=== PATIENT | female | born 1930 | race Caucasian/White ===

== ENCOUNTER 2016-10-28 07:14 | Inpatient (IN) | payer OTHER ==
[~2016-10-28] VITALS: Ht 167.6 cm; Wt 82.0 kg
[~2016-10-28 07:14] MED LIST: ADVIL PM1 TABLET PO; ASPIRIN325 MG PO; ATORVASTATIN CA40 MG PO; CLEOCIN PE75 MG/5 ML PO; COUMADIN1 MG PO; DULCOLAX5 MG PO; ENDOCET 5-3251 EACH PO; GLIPIZIDE ER2.5 MG PO; HYDROCHLOROTHIA25 MG PO; IBUPROFEN800 MG PO; IRON325 M1 PO; LEXAPRO10 MG PO; LISINOPRIL10 MG PO; LO-DOSE ASPIRIN81 M2 PO; LYRICA100 MG PO; LYRICA75 MG PO; MEDROL DOSEPAK4 MG PO; METHYLPREDNISOLO4 MG PO; OXYCODONE H5 MG/5 ML PO; OXYCONTIN10 MG PO; PREDNISONE5 MG PO; TOPRO; TRANXENE T-TAB7.5 MG PO; ULTRAM50 MG PO; VITAMIN D31000 UNI2 PO; ZESTRIL,PRINIVI10 MG PO; [UNRECOGNIZED DRUG - CODE] PO; [UNRECOGNIZED DRUG - OTHER]
[2016-10-28 08:45] LABS: HEMATOCRIT 37.1 % (36.0-46.0); MCH 30.1 PG (29.0-34.0); MCHC 32.9 G/DL (30.0-36.0); MCV 91.6 FL (83-99); MEAN PLAT.VOLUME 10.3 uM^3 (9.5-12.4); PLATELET COUNT 231 K/uL (156-360); RBC DIS.WIDTH-CV 13.4 % (11.8-14.6); RBC DIS.WIDTH-SD 45.6 % (39-53); RED BLOOD COUNT 4.05 M/uL (3.80-5.20); WHITE BLOOD COUNT 10.2 K/uL (4.1-10.2)
[2016-10-28 08:58] LABS: CHLORIDE 101 mEq/L (99-109); POTASSIUM 3.6 mEq/L (3.7-5.4); SODIUM 139 mEq/L (136-147)
[2016-10-28 09:00] LABS: GLUCOSE 97 mg/dL (70-99)
[2016-10-28 09:01] LABS: ANION GAP 9 MEQ/L (2-14)
[2016-10-28 09:02] LABS: TOTAL BILIRUBIN 0.4 mg/dL (0.0-1.0)
[2016-10-28 09:04] LABS: ALKALINE PHOSPHATASE 42 IU/L (3-129); GFR ESTIMATE (CALCULATED) > 59 mL/min/
[2016-10-28 09:05] LABS: UREA NITROGEN (BUN) 26 mg/dL (9-23)
[2016-10-28 09:07] LABS: LIPASE 35 U/L (1.0-51.0)
[2016-10-28 09:08] LABS: TROP-I INTERPRETATION NEGATIVE; TROPONIN-I < 0.01 ng/mL (0.0-0.30)
[2016-10-28 10:22] LABS: INTER. NORMALIZED RATIO 1.1; PROTHROMBIN TIME 11.8 SEC (10.2-12.9)
[2016-10-28 10:25] LABS: PTT 25.2 SEC (25-37)
[2016-10-28] MEDS ORDERED: GLYBURIDE MICR1.5 M1 PO (11:39)
[2016-10-28] MEDS ORDERED: ULTRAM50 MG PO (11:40)
[2016-10-28] MEDS ORDERED: LITE COAT ASPI325 M1 PO (11:41)
[2016-10-28] MEDS ORDERED: BENTYL10 MG PO (11:42)
[2016-10-28] MEDS ORDERED: ONCE DAILY1 EACH PO (11:42)
[2016-10-28] MEDS ORDERED: BIOTIN1000 MICRO PO (11:43)
[2016-10-28 12:15] VITALS: BP 123/67
[2016-10-28 16:37] LABS: POINT-OF-CARE METER ID UU14162508
[2016-10-28 16:52] VITALS: BP 126/60
[2016-10-28 20:11] VITALS: BP 128/58
[2016-10-28 21:25] LABS: POINT-OF-CARE METER ID UU14208750
[2016-10-28 23:55] VITALS: BP 118/59
[2016-10-29 04:04] VITALS: BP 144/65
[2016-10-29 04:48] LABS: HEMATOCRIT 38.7 % (36.0-46.0); MCH 30.2 PG (29.0-34.0); MCHC 32.8 G/DL (30.0-36.0); MCV 92.1 FL (83-99); MEAN PLAT.VOLUME 10.4 uM^3 (9.5-12.4); PLATELET COUNT 215 K/uL (156-360); RBC DIS.WIDTH-CV 13.7 % (11.8-14.6); RBC DIS.WIDTH-SD 46.5 % (39-53); WHITE BLOOD COUNT 10.4 K/uL (4.1-10.2)
[2016-10-29 06:47] LABS: POINT-OF-CARE METER ID UU14162508
[2016-10-29 07:39] VITALS: BP 158/70
[2016-10-29 11:53] VITALS: BP 118/56
[2016-10-29 11:58] LABS: POINT-OF-CARE METER ID UU14162508
[2016-10-29 16:31] VITALS: BP 114/55
[2016-10-29 16:31] LABS: POINT-OF-CARE METER ID UU14162508
[2016-10-29 19:20] VITALS: BP 115/56
[2016-10-29 19:53] VITALS: BP 115/56
[2016-10-29 21:50] LABS: POINT-OF-CARE METER ID UU14162508
[2016-10-30 00:02] VITALS: BP 126/55
[2016-10-30 04:03] VITALS: BP 135/62
[2016-10-30 06:24] LABS: POINT-OF-CARE METER ID UU14162508
[2016-10-30 07:30] VITALS: BP 110/61
[2016-10-30] MEDS ORDERED: ELIQUIS5 MG PO ×2 (10:04→12:22)
[2016-10-30 11:30] LABS: POINT-OF-CARE METER ID UU14162508
[2016-10-30 11:45] VITALS: BP 120/60
[2016-10-30] MEDS ORDERED: ASPIR-LOW81 MG PO (12:22)
[2016-11-02 13:04] LABS: ANTITHROMBIN III ACTIVITY+ 80 (80-120); DRVVT Mixing Study Interp Not Indicated (()); PROTEIN C FUNCTIONAL ACTIVITY+ 155 % (70-180); PTT-LA 41 sec (<=40); Protein S, Free 128 % normal (50-147); Thrombosis Consult Level Limited (()); dRVVT Screen 30 sec (<=45)
== END 2016-10-30 13:32 | disposition home or self-care (01) | DRG 175 ==
LOC: EME 07:14 → EDOF 10:30 → 2EAST 10:30 → ENRESERV 10:35 → EDOF 10:49 → ENRESERV 11:05 → 2EAST 11:51
PROVIDERS: Anesthesiology; Internal Medicine; Nurse Practitioner Family
DX: I26.99 Other pulmonary embolism without acute cor pulmonale (principal); J96.01 Acute respiratory failure with hypoxia; I10 Essential (primary) hypertension; E78.5 Hyperlipidemia, unspecified; J98.11 Atelectasis; M79.7 Fibromyalgia; E11.9 Type 2 diabetes mellitus without complications; Z96.643 Presence of artificial hip joint, bilateral; E66.9 Obesity, unspecified; Z68.29 Body mass index [BMI] 29.0-29.9, adult; K59.00 Constipation, unspecified; M19.90 Unspecified osteoarthritis, unspecified site; I70.0 Atherosclerosis of aorta; E87.6 Hypokalemia; G25.0 Essential tremor; Z79.84 Long term (current) use of oral hypoglycemic drugs
CPT/HCPCS: 71275; 73030; 80053; 81003; 81240 90; 82948; 83090 90; 83690; 84484; 85027; 85240 90; 85300 90; 85303 90; 85305 90; 85306 90; 85610; 85613 90; 85730; 85730 90; 86146 90; 86147 90; 93005; 93970; 94799; 99281; 99285; J1815; J2270; J2405; J3010; J7030

== ENCOUNTER 2016-11-17 01:21 | Inpatient (IN) | payer OTHER ==
[~2016-11-17] VITALS: Ht 167.6 cm; Wt 79.5 kg
[~2016-11-17 01:21] MED LIST changes: +ASPIR-LOW81 MG PO; +BENTYL10 MG PO; +BIOTIN1000 MICRO PO; +ELIQUIS5 MG PO; +GLYBURIDE MICR1.5 M1 PO; +LITE COAT ASPI325 M1 PO; +ONCE DAILY1 EACH PO
[2016-11-17 02:23] LABS: HEMATOCRIT 39.2 % (36.0-46.0); MCH 30.7 PG (29.0-34.0); MCHC 33.9 G/DL (30.0-36.0); MCV 90.5 FL (83-99); RBC DIS.WIDTH-CV 13.8 % (11.8-14.6); RBC DIS.WIDTH-SD 46.3 % (39-53); RED BLOOD COUNT 4.33 M/uL (3.80-5.20); WHITE BLOOD COUNT 27.9 K/uL (4.1-10.2)
[2016-11-17 02:32] LABS: CHLORIDE 106 mEq/L (99-109); SODIUM 140 mEq/L (136-147)
[2016-11-17 02:34] LABS: GLUCOSE 120 mg/dL (70-99)
[2016-11-17 02:35] LABS: ANION GAP 10 MEQ/L (2-14)
[2016-11-17 02:36] LABS: TOTAL BILIRUBIN 0.3 mg/dL (0.0-1.0)
[2016-11-17 02:37] LABS: ALKALINE PHOSPHATASE 44 IU/L (3-129)
[2016-11-17 02:38] LABS: GFR ESTIMATE (CALCULATED) > 59 mL/min/
[2016-11-17 02:39] LABS: UREA NITROGEN (BUN) 27 mg/dL (9-23)
[2016-11-17 02:57] LABS: MEAN PLAT.VOLUME 11.3 uM^3 (9.5-12.4); PLAT.SUFFICIENCY ADEQUATE; PLATELET COUNT 253 K/uL (156-360)
[2016-11-17 03:41] LABS: LIPASE 43 U/L (1.0-51.0)
[2016-11-17 03:48] LABS: TROP-I INTERPRETATION NEGATIVE; TROPONIN-I < 0.01 ng/mL (0.0-0.30)
[2016-11-17 05:22] LABS: ADD MIUA? YES; BILIRUBIN NEGATIVE; BLOOD NEGATIVE; COLOR STRAW ((YELLOW)); GLUCOSE (STRIP) NEGATIVE; KETONES NEGATIVE; LEUKOCYTES TRACE; NITRITE NEGATIVE; PROTEIN (STRIP) NEGATIVE; UROBILINOGEN 0.2 MG/DL (0.2-1.0)
[2016-11-17 05:29] LABS: BACTERIA NONE SEEN /HPF; EPITHELIAL CELLS 1+ /HPF; MUCUS TRACE /LPF; RED BLOOD CELLS 0-5 /HPF (0-5); UCUL ADDED? NO; WHITE BLOOD CELLS 0-5 /HPF (0-5)
[2016-11-17 06:27] LABS: SPECIFIC GRAVITY 1.071 (1.000-1.030)
[2016-11-17 07:11] VITALS: BP 125/58
[2016-11-17 08:34] LABS: POINT-OF-CARE METER ID UU14117124
[2016-11-17 11:53] LABS: POINT-OF-CARE METER ID UU14117124
[2016-11-17 16:07] LABS: POINT-OF-CARE METER ID UU14117124
[2016-11-17 16:08] VITALS: BP 14/65; BP 145/65
[2016-11-17 19:33] VITALS: BP 142/65
[2016-11-17 21:46] LABS: POINT-OF-CARE METER ID UU14117124
[2016-11-17 21:54] LABS: HEMATOCRIT 38.6 % (36.0-46.0); MCH 31.2 PG (29.0-34.0); MCHC 33.7 G/DL (30.0-36.0); MCV 92.6 FL (83-99); RBC DIS.WIDTH-CV 14.2 % (11.8-14.6); RBC DIS.WIDTH-SD 48.1 % (39-53); RED BLOOD COUNT 4.17 M/uL (3.80-5.20); WHITE BLOOD COUNT 17.6 K/uL (4.1-10.2)
[2016-11-17 22:07] LABS: INTER. NORMALIZED RATIO 1.4; PROTHROMBIN TIME 15.5 SEC (10.2-12.9)
[2016-11-17 22:09] LABS: PTT 29.3 SEC (25-37)
[2016-11-17 22:22] LABS: PLATELET COUNT UNABLE TO REPORT K/uL (156-360)
[2016-11-17 23:45] VITALS: BP 148/65
[2016-11-18] LABS: POINT-OF-CARE METER ID UU14117124
[2016-11-18 05:13] VITALS: BP 131/60
[2016-11-18 05:33] LABS: BASOPHIL COUNT 0.1 K/uL (0-0.1); EOSINOPHIL COUNT 0.2 K/uL (0-0.3); HEMATOCRIT 40.7 % (36.0-46.0); IMMATURE GRANULOCYTE (%) 1.3 % (0.0-0.7); IMMATURE GRANULOCYTE COUNT 0.3 K/uL; INSTRUMENT ABS NEUTROPHIL CT 16.6 K/uL; LYMPHOCYTE COUNT 1.7 K/uL (1.0-2.8); MCH 29.9 PG (29.0-34.0); MCHC 32.4 G/DL (30.0-36.0); MCV 92.1 FL (83-99); MONOCYTE (%) 5.2 % (3-12); NEUTROPHIL (%) 83.7 % (45-76); NEUTROPHIL COUNT 16.6 K/uL (1.8-6.4); PLATELET COUNT 254 K/uL (156-360); RBC DIS.WIDTH-SD 47.8 % (39-53); RED BLOOD COUNT 4.42 M/uL (3.80-5.20); WHITE BLOOD COUNT 19.8 K/uL (4.1-10.2)
[2016-11-18 06:00] LABS: ANION GAP 7 MEQ/L (2-14); CHLORIDE 99 MEQ/L (99-109); GFR ESTIMATE (CALCULATED) > 59 mL/min/; GLUCOSE 133 mg/dL (70-99); POTASSIUM 4.4 MEQ/L (3.7-5.4); SAMPLE HEMOLYSIS CHECK 0; SAMPLE ICTERIC CHECK 0; SAMPLE LIPEMIA CHECK 0; SODIUM 137 MEQ/L (136-147); UREA NITROGEN (BUN) 18 mg/dL (9-23)
[2016-11-18 06:38] LABS: POINT-OF-CARE METER ID UU14117124
[2016-11-18 07:49] VITALS: BP 121/58
[2016-11-18 11:07] LABS: POINT-OF-CARE METER ID UU14117124
[2016-11-18 11:31] VITALS: BP 117/58
[2016-11-18 16:38] VITALS: BP 138/63
[2016-11-18 16:40] LABS: POINT-OF-CARE METER ID UU14117124
[2016-11-18 19:47] LABS: INTER. NORMALIZED RATIO 1.4
[2016-11-18 19:50] LABS: PTT 53.7 SEC (25-37)
[2016-11-18 22:02] LABS: POINT-OF-CARE METER ID UU14117124
[2016-11-19] VITALS (9 sets, daily range): BP systolic 125–157; BP diastolic 58–80
[2016-11-19 01:57] LABS: BASOPHIL COUNT 0.1 K/uL (0-0.1); EOSINOPHIL (%) 1.5 % (0-5); EOSINOPHIL COUNT 0.2 K/uL (0-0.3); HEMATOCRIT 36.2 % (36.0-46.0); IMMATURE GRANULOCYTE (%) 1.7 % (0.0-0.7); IMMATURE GRANULOCYTE COUNT 0.3 K/uL; INSTRUMENT ABS NEUTROPHIL CT 12.3 K/uL; LYMPHOCYTE COUNT 1.6 K/uL (1.0-2.8); MCH 30.4 PG (29.0-34.0); MCHC 33.7 G/DL (30.0-36.0); MCV 90.3 FL (83-99); MEAN PLAT.VOLUME 10.7 uM^3 (9.5-12.4); MONOCYTE (%) 6.6 % (3-12); NEUTROPHIL (%) 79.1 % (45-76); NEUTROPHIL COUNT 12.3 K/uL (1.8-6.4); PLATELET COUNT 213 K/uL (156-360); RBC DIS.WIDTH-CV 13.8 % (11.8-14.6); RBC DIS.WIDTH-SD 45.2 % (39-53); RED BLOOD COUNT 4.01 M/uL (3.80-5.20); WHITE BLOOD COUNT 15.5 K/uL (4.1-10.2)
[2016-11-19 09:04] LABS: ANION GAP 8 MEQ/L (2-14); CHLORIDE 105 MEQ/L (99-109); GFR ESTIMATE (CALCULATED) > 59 mL/min/; GLUCOSE 154 mg/dL (70-99); POTASSIUM 3.9 MEQ/L (3.7-5.4); SAMPLE HEMOLYSIS CHECK 0; SAMPLE ICTERIC CHECK 0; SAMPLE LIPEMIA CHECK 0; SODIUM 141 MEQ/L (136-147); UREA NITROGEN (BUN) 13 mg/dL (9-23)
[2016-11-19 16:41] LABS: POINT-OF-CARE METER ID UU14117124
[2016-11-19 22:03] LABS: POINT-OF-CARE METER ID UU14208753
[2016-11-20 00:26] VITALS: BP 125/58
[2016-11-20 03:10] VITALS: BP 121/59
[2016-11-20 08:06] VITALS: BP 151/68
[2016-11-20 08:46] LABS: HEMATOCRIT 33.5 % (36.0-46.0); MCH 30.8 PG (29.0-34.0); MCHC 33.7 G/DL (30.0-36.0); MCV 91.3 FL (83-99); MEAN PLAT.VOLUME 10.5 uM^3 (9.5-12.4); PLATELET COUNT 232 K/uL (156-360); RBC DIS.WIDTH-CV 13.9 % (11.8-14.6); RBC DIS.WIDTH-SD 46.6 % (39-53); RED BLOOD COUNT 3.67 M/uL (3.80-5.20); WHITE BLOOD COUNT 13.5 K/uL (4.1-10.2)
[2016-11-20 09:09] LABS: ANION GAP 9 MEQ/L (2-14); CHLORIDE 105 MEQ/L (99-109); GFR ESTIMATE (CALCULATED) > 59 mL/min/; GLUCOSE 204 mg/dL (70-99); POTASSIUM 3.4 MEQ/L (3.7-5.4); SAMPLE HEMOLYSIS CHECK 0; SAMPLE ICTERIC CHECK 0; SAMPLE LIPEMIA CHECK 0; SODIUM 139 MEQ/L (136-147); UREA NITROGEN (BUN) 10 mg/dL (9-23)
[2016-11-20 10:12] LABS: POC NON-PRINT COM 1 ND
[2016-11-20 10:28] LABS: MAGNESIUM 1.4 mg/dl (1.3-2.7)
[2016-11-20 15:31] VITALS: BP 118/56
[2016-11-20 16:18] LABS: C DIFF TOXIN NEGATIVE (NEGATIVE)
[2016-11-20 16:50] LABS: PROBE CHECK PASS; SPECIMEN PROCESSING CONTROL PASS
[2016-11-20 19:38] VITALS: BP 125/88
[2016-11-20 21:39] LABS: POINT-OF-CARE METER ID UU14208753
[2016-11-20 23:51] VITALS: BP 165/68
[2016-11-21 03:43] VITALS: BP 144/65
[2016-11-21 06:12] LABS: BASOPHIL COUNT 0.1 K/uL (0-0.1); EOSINOPHIL COUNT 0.3 K/uL (0-0.3); HEMATOCRIT 34.8 % (36.0-46.0); IMMATURE GRANULOCYTE (%) 3.8 % (0.0-0.7); IMMATURE GRANULOCYTE COUNT 0.6 K/uL; INSTRUMENT ABS NEUTROPHIL CT 10.2 K/uL; MCH 29.6 PG (29.0-34.0); MCHC 32.5 G/DL (30.0-36.0); MCV 91.1 FL (83-99); MEAN PLAT.VOLUME 10.8 uM^3 (9.5-12.4); MONOCYTE (%) 8.9 % (3-12); MONOCYTE COUNT 1.3 K/uL (0-0.8); NEUTROPHIL COUNT 10.2 K/uL (1.8-6.4); PLATELET COUNT 241 K/uL (156-360); RBC DIS.WIDTH-CV 13.8 % (11.8-14.6); RBC DIS.WIDTH-SD 46.5 % (39-53); RED BLOOD COUNT 3.82 M/uL (3.80-5.20); WHITE BLOOD COUNT 14.3 K/uL (4.1-10.2)
[2016-11-21 06:36] LABS: POINT-OF-CARE METER ID UU14188577
[2016-11-21 06:43] LABS: ANION GAP 9 MEQ/L (2-14); CHLORIDE 102 MEQ/L (99-109); GFR ESTIMATE (CALCULATED) > 59 mL/min/; GLUCOSE 150 mg/dL (70-99); POTASSIUM 3.8 MEQ/L (3.7-5.4); SAMPLE HEMOLYSIS CHECK 0; SAMPLE ICTERIC CHECK 0; SAMPLE LIPEMIA CHECK 0; SODIUM 136 MEQ/L (136-147); UREA NITROGEN (BUN) 10 mg/dL (9-23)
[2016-11-21 07:36] VITALS: BP 137/73
[2016-11-21] MEDS ORDERED: FLAGYL500 MG PO (10:19)
[2016-11-21] MEDS ORDERED: CIPRO500 MG PO (10:20)
== END 2016-11-21 11:47 | disposition home or self-care (01) | DRG 392 ==
LOC: EME 01:21 → EDOF 05:35 → 3EAST 05:35 → ENRESERV 05:37 → 3EAST 07:12
PROVIDERS: Hospitalist; Internal Medicine; Internal Medicine Gastroenterology; Physician Assistant; Student in an Organized Health Care Education/Training Program
DX: K57.20 Diverticulitis of large intestine with perforation and abscess without bleeding (principal); D72.829 Elevated white blood cell count, unspecified; E86.0 Dehydration; I10 Essential (primary) hypertension; E11.9 Type 2 diabetes mellitus without complications; M79.7 Fibromyalgia; M19.019 Primary osteoarthritis, unspecified shoulder; E78.5 Hyperlipidemia, unspecified; G25.0 Essential tremor; R32 Unspecified urinary incontinence; E66.9 Obesity, unspecified; K59.09 Other constipation; N28.1 Cyst of kidney, acquired; Z86.711 Personal history of pulmonary embolism; Z80.0 Family history of malignant neoplasm of digestive organs; Z96.643 Presence of artificial hip joint, bilateral; M25.512 Pain in left shoulder
CPT/HCPCS: 73030; 74177; 80048; 80053; 81003; 82272; 82948; 83605; 83690; 83735; 84484; 85025; 85027; 85610; 85730; 87040; 87177; 87329; 87493; 99281; 99285; J0744; J1815; J2270; J2405; J7030; J7120; S0028; S0030

== ENCOUNTER 2017-01-20 10:52 | Inpatient (IN) | payer OTHER ==
[~2017-01-20] VITALS: Ht 167.6 cm; Wt 81.1 kg
[~2017-01-20 10:52] MED LIST changes: +CIPRO500 MG PO; +FLAGYL500 MG PO
[2017-01-20 11:57] LABS: HEMATOCRIT 41.2 % (36.0-46.0); MCH 30.8 PG (29.0-34.0); MCV 90.7 FL (83-99); MEAN PLAT.VOLUME 10.3 uM^3 (9.5-12.4); PLATELET COUNT 287 K/uL (156-360); RBC DIS.WIDTH-SD 42.6 % (39-53); RED BLOOD COUNT 4.54 M/uL (3.80-5.20); WHITE BLOOD COUNT 19.8 K/uL (4.1-10.2)
[2017-01-20 12:05] LABS: CHLORIDE 99 mEq/L (99-109)
[2017-01-20 12:06] LABS: POTASSIUM 3.8 mEq/L (3.7-5.4); SODIUM 136 mEq/L (136-147)
[2017-01-20 12:08] LABS: GLUCOSE 146 mg/dL (70-99)
[2017-01-20 12:09] LABS: ANION GAP 11 MEQ/L (2-14)
[2017-01-20 12:10] LABS: TOTAL BILIRUBIN 0.7 mg/dL (0.0-1.0)
[2017-01-20 12:11] LABS: ALKALINE PHOSPHATASE 53 IU/L (3-129); GFR ESTIMATE (CALCULATED) > 59 mL/min/
[2017-01-20 12:13] LABS: UREA NITROGEN (BUN) 18 mg/dL (9-23)
[2017-01-20] MEDS ORDERED: DICYCLOMINE HCL10 MG PO (12:19)
[2017-01-20] MEDS ORDERED: GLIPIZIDE5 MG PO (12:20)
[2017-01-20 15:11] LABS: ADD MIUA? YES; BILIRUBIN NEGATIVE; BLOOD LARGE; COLOR YELLOW ((YELLOW)); GLUCOSE (STRIP) NEGATIVE; KETONES NEGATIVE; LEUKOCYTES LARGE; NITRITE NEGATIVE; PROTEIN (STRIP) 30; UROBILINOGEN 0.2 MG/DL (0.2-1.0)
[2017-01-20 15:24] LABS: SPECIFIC GRAVITY 1.081 (1.000-1.030)
[2017-01-20 15:33] LABS: EPITHELIAL CELLS 1+ /HPF; WHITE BLOOD CELLS TNTC /HPF (0-5)
[2017-01-20 15:34] LABS: BACTERIA 1+ /HPF; MUCUS NONE SEEN /LPF; UCUL ADDED? YES
[2017-01-20 15:35] LABS: CASTS NONE SEEN /LPF; CRYSTALS NONE SEEN
[2017-01-20 15:58] VITALS: BP 114/68
[2017-01-20 19:15] VITALS: BP 125/53
[2017-01-20 21:18] VITALS: BP 122/60
[2017-01-21] VITALS (8 sets, daily range): BP systolic 97–174; BP diastolic 49–77
[2017-01-21 00:52] LABS: POINT-OF-CARE METER ID UU13113717
[2017-01-21 00:52] LABS: HEMATOCRIT 40.1 % (36.0-46.0); MCH 30.7 PG (29.0-34.0); MCHC 33.7 G/DL (30.0-36.0); MCV 91.1 FL (83-99); MEAN PLAT.VOLUME 10.5 uM^3 (9.5-12.4); PLATELET COUNT 291 K/uL (156-360); RBC DIS.WIDTH-CV 13.2 % (11.8-14.6); RBC DIS.WIDTH-SD 44.2 % (39-53)
[2017-01-21 01:10] LABS: CHLORIDE 102 mEq/L (99-109); POTASSIUM 3.9 mEq/L (3.7-5.4); SODIUM 135 mEq/L (136-147)
[2017-01-21 01:13] LABS: ANION GAP 11 MEQ/L (2-14)
[2017-01-21 01:13] LABS: TROP-I INTERPRETATION NEGATIVE; TROPONIN-I < 0.01 ng/mL (0.0-0.30)
[2017-01-21 01:15] LABS: GFR ESTIMATE (CALCULATED) > 59 mL/min/
[2017-01-21 01:16] LABS: UREA NITROGEN (BUN) 19 mg/dL (9-23)
[2017-01-21 01:17] LABS: GLUCOSE 223 mg/dL (70-99)
[2017-01-21 02:33] LABS: INTER. NORMALIZED RATIO 1.2; PROTHROMBIN TIME 13.1 SEC (10.2-12.9)
[2017-01-21 02:36] LABS: PTT 25.2 SEC (25-37)
[2017-01-21 08:43] LABS: POINT-OF-CARE METER ID UU14314088; POINT-OF-CARE USER ID ENVKC36
[2017-01-21 08:51] LABS: HEMATOCRIT 36.8 % (36.0-46.0); MCH 30.1 PG (29.0-34.0); MCHC 32.3 G/DL (30.0-36.0); MCV 92.9 FL (83-99); MEAN PLAT.VOLUME 10.3 uM^3 (9.5-12.4); PLATELET COUNT 268 K/uL (156-360); RBC DIS.WIDTH-CV 13.3 % (11.8-14.6); RBC DIS.WIDTH-SD 45.4 % (39-53); RED BLOOD COUNT 3.96 M/uL (3.80-5.20); WHITE BLOOD COUNT 21.7 K/uL (4.1-10.2)
[2017-01-21 09:47] LABS: TROP-I INTERPRETATION NEGATIVE; TROPONIN-I < 0.01 ng/mL (0.0-0.30)
[2017-01-21 13:59] LABS: POINT-OF-CARE METER ID UU14174216
[2017-01-21 14:53] LABS: TROP-I INTERPRETATION NEGATIVE; TROPONIN-I < 0.01 ng/mL (0.0-0.30)
[2017-01-21 16:51] LABS: POINT-OF-CARE METER ID UU14314088
[2017-01-21 21:30] LABS: POINT-OF-CARE METER ID UU13113698
[2017-01-22] VITALS (7 sets, daily range): BP systolic 108–138; BP diastolic 56–90
[2017-01-22 04:55] LABS: HEMATOCRIT 34.3 % (36.0-46.0); MCH 30.4 PG (29.0-34.0); MCHC 32.7 G/DL (30.0-36.0); MEAN PLAT.VOLUME 10.5 uM^3 (9.5-12.4); PLATELET COUNT 237 K/uL (156-360); RBC DIS.WIDTH-CV 13.4 % (11.8-14.6); RBC DIS.WIDTH-SD 45.5 % (39-53); RED BLOOD COUNT 3.69 M/uL (3.80-5.20); WHITE BLOOD COUNT 10.9 K/uL (4.1-10.2)
[2017-01-22 05:16] LABS: TROP-I INTERPRETATION NEGATIVE; TROPONIN-I < 0.01 ng/mL (0.0-0.30)
[2017-01-22 05:19] LABS: CHLORIDE 105 mEq/L (99-109); POTASSIUM 3.4 mEq/L (3.7-5.4); SODIUM 138 mEq/L (136-147)
[2017-01-22 05:22] LABS: ANION GAP 7 MEQ/L (2-14)
[2017-01-22 05:24] LABS: GFR ESTIMATE (CALCULATED) > 59 mL/min/
[2017-01-22 05:25] LABS: UREA NITROGEN (BUN) 18 mg/dL (9-23)
[2017-01-22 05:26] LABS: POINT-OF-CARE METER ID UU13113781
[2017-01-22 05:26] LABS: GLUCOSE 114 mg/dL (70-99)
[2017-01-22 11:54] LABS: POINT-OF-CARE METER ID UU13113781; POINT-OF-CARE USER ID ENVKC36
[2017-01-22 16:50] LABS: POINT-OF-CARE METER ID UU13113698; POINT-OF-CARE USER ID ENVKC36
[2017-01-22 21:45] LABS: POINT-OF-CARE METER ID UU13113698
[2017-01-23 03:59] VITALS: BP 148/66
[2017-01-23 05:10] LABS: HEMATOCRIT 34.1 % (36.0-46.0); MCH 30.7 PG (29.0-34.0); MCHC 33.7 G/DL (30.0-36.0); MCV 90.9 FL (83-99); PLATELET COUNT 250 K/uL (156-360); RBC DIS.WIDTH-CV 13.2 % (11.8-14.6); RBC DIS.WIDTH-SD 43.2 % (39-53); RED BLOOD COUNT 3.75 M/uL (3.80-5.20); WHITE BLOOD COUNT 8.4 K/uL (4.1-10.2)
[2017-01-23 05:29] LABS: CHLORIDE 108 mEq/L (99-109); POTASSIUM 3.5 mEq/L (3.7-5.4); SODIUM 136 mEq/L (136-147)
[2017-01-23 05:31] LABS: GLUCOSE 121 mg/dL (70-99)
[2017-01-23 05:32] LABS: ANION GAP 6 MEQ/L (2-14)
[2017-01-23 05:35] LABS: GFR ESTIMATE (CALCULATED) > 59 mL/min/
[2017-01-23 05:36] LABS: UREA NITROGEN (BUN) 12 mg/dL (9-23)
[2017-01-23 07:59] LABS: POINT-OF-CARE METER ID UU14314088; POINT-OF-CARE USER ID NUTSLF44
[2017-01-23 09:30] VITALS: BP 118/64
[2017-01-23 11:04] VITALS: BP 111/56
[2017-01-23 11:39] LABS: POINT-OF-CARE METER ID UU14208753
[2017-01-23 16:17] VITALS: BP 178/74
[2017-01-23 16:21] LABS: POINT-OF-CARE METER ID UU14208753
[2017-01-23 19:41] VITALS: BP 136/73
[2017-01-23 21:56] LABS: POINT-OF-CARE METER ID UU14208753
[2017-01-24 00:09] VITALS: BP 160/64
[2017-01-24 03:46] VITALS: BP 160/70
[2017-01-24 06:20] LABS: ANION GAP 8 MEQ/L (2-14); CHLORIDE 107 MEQ/L (99-109); GFR ESTIMATE (CALCULATED) > 59 mL/min/; GLUCOSE 94 mg/dL (70-99); POTASSIUM 3.6 MEQ/L (3.7-5.4); SAMPLE HEMOLYSIS CHECK 0; SAMPLE ICTERIC CHECK 0; SAMPLE LIPEMIA CHECK 0; SODIUM 139 MEQ/L (136-147); UREA NITROGEN (BUN) 9 mg/dL (9-23)
[2017-01-24 06:49] LABS: POINT-OF-CARE METER ID UU14149397
[2017-01-24 08:03] VITALS: BP 137/66
[2017-01-24] MEDS ORDERED: ELIQUIS5 MG PO (09:31)
[2017-01-24] MEDS ORDERED: FLAGYL500 MG PO (09:32)
[2017-01-24] MEDS ORDERED: CEFTRIAXONE2 G1 IV (09:33)
[2017-01-24 12:19] LABS: POINT-OF-CARE METER ID UU14208753
== END 2017-01-24 14:33 | disposition home or self-care (01) | DRG 871 ==
LOC: EME 10:52 → EDOF 14:12 → 4EAST 14:12 → ENRESERV 14:13 → 5SOUTH 15:30 → ENRESERV 01-21 01:04 → 4EAST 01-21 01:53 → ENRESERV 01-23 08:24 → 3EAST 01-23 10:28
PROVIDERS: Hospitalist; Internal Medicine; Internal Medicine Cardiovascular Disease
DX: A41.9 Sepsis, unspecified organism (principal); K57.20 Diverticulitis of large intestine with perforation and abscess without bleeding; I26.99 Other pulmonary embolism without acute cor pulmonale; R55 Syncope and collapse; I10 Essential (primary) hypertension; E11.9 Type 2 diabetes mellitus without complications; G25.0 Essential tremor; M19.90 Unspecified osteoarthritis, unspecified site; E78.5 Hyperlipidemia, unspecified; N28.1 Cyst of kidney, acquired; M79.7 Fibromyalgia; R09.02 Hypoxemia; J98.11 Atelectasis; F41.9 Anxiety disorder, unspecified; K76.89 Other specified diseases of liver; K59.00 Constipation, unspecified; Z80.0 Family history of malignant neoplasm of digestive organs; Z96.643 Presence of artificial hip joint, bilateral; Z79.899 Other long term (current) drug therapy; Z79.01 Long term (current) use of anticoagulants; Z68.30 Body mass index [BMI] 30.0-30.9, adult; Z79.84 Long term (current) use of oral hypoglycemic drugs; Z86.711 Personal history of pulmonary embolism; Z85.828 Personal history of other malignant neoplasm of skin
CPT/HCPCS: 71020; 74176; 74177; 76937; 78582; 80048; 80053; 81003; 82948; 83605; 84484; 85027; 85379; 85610; 85730; 87040; 87086; 93005; 94799; 97530 GP; 99281; 99285; A9540; A9567; C1753; C1894; J0696; J0744; J1650; J1815; J1885; J2270; J2405; J3480; J7030; J7050; J7509; S0030

== ENCOUNTER 2017-02-10 23:52 | Emergency (ER) | payer OTHER ==
[~2017-02-10] VITALS: Ht 167.6 cm; Wt 77.0 kg
[~2017-02-10 23:52] MED LIST changes: +CEFTRIAXONE2 G1 IV; +DICYCLOMINE HCL10 MG PO; +GLIPIZIDE5 MG PO
[2017-02-11 00:21] LABS: BASOPHIL COUNT 0.1 K/uL (0-0.1); EOSINOPHIL (%) 0.5 % (0-5); EOSINOPHIL COUNT 0.1 K/uL (0-0.3); HEMATOCRIT 38.8 % (36.0-46.0); IMMATURE GRANULOCYTE (%) 0.3 % (0.0-0.7); INSTRUMENT ABS NEUTROPHIL CT 6.4 K/uL; LYMPHOCYTE COUNT 2.6 K/uL (1.0-2.8); MCH 30.4 PG (29.0-34.0); MCHC 33.5 G/DL (30.0-36.0); MCV 90.9 FL (83-99); MEAN PLAT.VOLUME 10.9 uM^3 (9.5-12.4); MONOCYTE (%) 8.1 % (3-12); MONOCYTE COUNT 0.8 K/uL (0-0.8); NEUTROPHIL (%) 64.2 % (45-76); NEUTROPHIL COUNT 6.4 K/uL (1.8-6.4); PLATELET COUNT 250 K/uL (156-360); RBC DIS.WIDTH-CV 13.3 % (11.8-14.6); RBC DIS.WIDTH-SD 44.8 % (39-53); RED BLOOD COUNT 4.27 M/uL (3.80-5.20)
[2017-02-11 00:37] LABS: CHLORIDE 105 mEq/L (99-109); POTASSIUM 3.8 mEq/L (3.7-5.4); SODIUM 137 mEq/L (136-147)
[2017-02-11 00:38] LABS: GLUCOSE 230 mg/dL (70-99)
[2017-02-11 00:40] LABS: ANION GAP 10 MEQ/L (2-14)
[2017-02-11 00:42] LABS: GFR ESTIMATE (CALCULATED) > 59 mL/min/
[2017-02-11 00:43] LABS: UREA NITROGEN (BUN) 22 mg/dL (9-23)
[2017-02-11 00:47] LABS: TROP-I INTERPRETATION NEGATIVE; TROPONIN-I < 0.01 ng/mL (0.0-0.30)
[2017-02-11] MEDS ORDERED: TYLENOL WITH C1 EACH PO (02:33)
[2017-02-11] MEDS ORDERED: LIDOCAINE700 MG TP (02:33)
[2017-02-11 02:44] VITALS: BP 138/82
== END 2017-02-11 02:45 | disposition home or self-care (01) ==
LOC: EME 23:52
PROVIDERS: Emergency Medicine
DX: M25.511 Pain in right shoulder (principal); M25.512 Pain in left shoulder; M19.012 Primary osteoarthritis, left shoulder; E11.9 Type 2 diabetes mellitus without complications; M79.7 Fibromyalgia; I10 Essential (primary) hypertension; F32.9 Major depressive disorder, single episode, unspecified; Z85.9 Personal history of malignant neoplasm, unspecified; Z88.0 Allergy status to penicillin
CPT/HCPCS: 71020; 73030; 80048; 84484; 85025; 93005; 99281; 99284; J3010

== ENCOUNTER 2017-04-18 19:15 | Emergency (ER) | payer OTHER ==
[~2017-04-18] VITALS: Ht 167.6 cm; Wt 77.7 kg
[~2017-04-18 19:15] MED LIST changes: +LIDOCAINE700 MG TP; +TYLENOL WITH C1 EACH PO
[2017-04-18 20:38] LABS: HEMATOCRIT 41.7 % (36.0-46.0); HEMOGLOBIN 14.4 G/DL (11.9-15.5); MCHC 34.5 G/DL (30.0-36.0); MCV 89.7 FL (83-99); RBC DIS.WIDTH-CV 13.2 % (11.8-14.6); RBC DIS.WIDTH-SD 43.1 % (39-53); RED BLOOD COUNT 4.65 M/uL (3.80-5.20); WHITE BLOOD COUNT 15.2 K/uL (4.1-10.2)
[2017-04-18 20:39] LABS: PLATELET COUNT 259 K/uL (156-360)
[2017-04-18 20:49] LABS: CHLORIDE 102 mEq/L (99-109); SODIUM 138 mEq/L (136-147)
[2017-04-18 20:50] LABS: GLUCOSE 149 mg/dL (70-99)
[2017-04-18 20:54] LABS: CREATININE 0.8 mg/dL (0.6-1.3); GFR ESTIMATE (CALCULATED) > 59 mL/min/
[2017-04-18 20:55] LABS: UREA NITROGEN (BUN) 22 mg/dL (9-23)
[2017-04-18 21:01] LABS: TROP-I INTERPRETATION NEGATIVE; TROPONIN-I < 0.01 ng/mL (0.0-0.30)
[2017-04-18 21:24] LABS: PLAT.SUFFICIENCY ADEQUATE
[2017-04-18 22:21] VITALS: BP 133/92
== END 2017-04-18 22:23 | disposition home or self-care (01) ==
LOC: EME → EDBD 19:15 → EME 19:15
PROVIDERS: Emergency Medicine
DX: R55 Syncope and collapse (principal); M79.7 Fibromyalgia; I10 Essential (primary) hypertension; E11.9 Type 2 diabetes mellitus without complications; F32.9 Major depressive disorder, single episode, unspecified; Z88.0 Allergy status to penicillin; Z88.8 Allergy status to other drugs, medicaments and biological substances
CPT/HCPCS: 71046; 80048; 84484; 85027; 93005; 99281; 99285

== ENCOUNTER 2017-06-01 08:38 | Observation (INO) | payer OTHER ==
[~2017-06-01] VITALS: Ht 167.6 cm; Wt 80.9 kg
[2017-06-01 09:37] LABS: HEMATOCRIT 41.1 % (36.0-46.0); MCH 30.6 PG (29.0-34.0); MCHC 34.1 G/DL (30.0-36.0); MCV 89.9 FL (83-99); RBC DIS.WIDTH-SD 42.6 % (39-53); RED BLOOD COUNT 4.57 M/uL (3.80-5.20); WHITE BLOOD COUNT 8.1 K/uL (4.1-10.2)
[2017-06-01 09:46] LABS: ALBUMIN 3.9 g/dL (3.2-4.8)
[2017-06-01 09:47] LABS: CHLORIDE 102 mEq/L (99-109); POTASSIUM 3.9 mEq/L (3.7-5.4); SODIUM 139 mEq/L (136-147)
[2017-06-01 09:49] LABS: GLUCOSE 150 mg/dL (70-99); TOTAL PROTEIN 6.6 g/dL (6.4-8.3)
[2017-06-01 09:51] LABS: PLATELET COUNT 256 K/uL (156-360); TOTAL BILIRUBIN 0.8 mg/dL (0.0-1.0)
[2017-06-01 09:52] LABS: ALKALINE PHOSPHATASE 53 IU/L (3-129)
[2017-06-01 09:54] LABS: AST (GOT) 14 IU/L (2-34); CREATININE 0.8 mg/dL (0.6-1.3); GFR ESTIMATE (CALCULATED) > 59 mL/min/; UREA NITROGEN (BUN) 15 mg/dL (9-23)
[2017-06-01 09:56] LABS: ALT (GPT) 18 IU/L (3-49)
[2017-06-01 10:16] LABS: TROP-I INTERPRETATION NEGATIVE; TROPONIN-I < 0.01 ng/mL (0.0-0.30)
[2017-06-01 10:36] LABS: APPEARANCE CLEAR ((CLEAR)); BILIRUBIN NEGATIVE; BLOOD NEGATIVE; COLOR YELLOW ((YELLOW)); GLUCOSE (STRIP) NEGATIVE; KETONES NEGATIVE; LEUKOCYTES NEGATIVE; NITRITE NEGATIVE; PROTEIN (STRIP) NEGATIVE; SPECIFIC GRAVITY 1.011 (1.000-1.030); UROBILINOGEN 0.2 MG/DL (0.2-1.0)
[2017-06-01 16:01] VITALS: BP 135/60
[2017-06-01 19:20] VITALS: BP 154/69
[2017-06-01 23:30] VITALS: BP 140/64
[2017-06-02] VITALS (8 sets, daily range): BP systolic 87–142; BP diastolic 48–84
[2017-06-02 06:21] LABS: HEMATOCRIT 39.5 % (36.0-46.0); HEMOGLOBIN 13.1 G/DL (11.9-15.5); MCHC 33.2 G/DL (30.0-36.0); MCV 90.4 FL (83-99); PLATELET COUNT 234 K/uL (156-360); RBC DIS.WIDTH-CV 13.2 % (11.8-14.6); RBC DIS.WIDTH-SD 43.8 % (39-53); RED BLOOD COUNT 4.37 M/uL (3.80-5.20)
[2017-06-02 06:40] LABS: TROP-I INTERPRETATION NEGATIVE; TROPONIN-I 0.01 ng/mL (0.0-0.30)
[2017-06-02 06:44] LABS: CHLORIDE 103 MEQ/L (99-109); CREATININE 0.7 MG/DL (0.6-1.3); GFR ESTIMATE (CALCULATED) > 59 mL/min/; GLUCOSE 152 mg/dL (70-99); POTASSIUM 3.8 MEQ/L (3.7-5.4); SODIUM 138 MEQ/L (136-147); UREA NITROGEN (BUN) 14 mg/dL (9-23)
[2017-06-03 03:30] VITALS: BP 104/55
[2017-06-03 08:00] VITALS: BP 138/64
== END 2017-06-03 11:30 | disposition home or self-care (01) ==
LOC: EME 08:38 → EDOF 13:10 → 5WEST 13:10 → EDOF 13:10 → ENRESERV 13:37 → EDOF 14:05 → ENRESERV 15:08 → 5WEST 15:57 → ENPENDDIS 06-03 09:15 → 5WEST 06-03 11:30
PROVIDERS: Internal Medicine; Nurse Practitioner Family
DX: R42 Dizziness and giddiness (principal); R55 Syncope and collapse; R11.0 Nausea; R51 Headache; D72.829 Elevated white blood cell count, unspecified; I10 Essential (primary) hypertension; E11.9 Type 2 diabetes mellitus without complications; E78.5 Hyperlipidemia, unspecified; M79.7 Fibromyalgia; F32.9 Major depressive disorder, single episode, unspecified; G25.0 Essential tremor; M19.90 Unspecified osteoarthritis, unspecified site; Z86.711 Personal history of pulmonary embolism; Z79.01 Long term (current) use of anticoagulants; Z85.828 Personal history of other malignant neoplasm of skin; Z88.0 Allergy status to penicillin; Z96.643 Presence of artificial hip joint, bilateral
CPT/HCPCS: 70450; 70551; 74177; 80048; 80053; 81003; 83605; 84484; 85027; 87040; 93005; 99281; 99285; G0378; G8978 GP CI; G8979 GP CH; G8980 GP CI; J2060; J7030

== ENCOUNTER 2017-07-05 10:51 | Inpatient (IN) | payer OTHER ==
[~2017-07-05] VITALS: Ht 167.6 cm; Wt 81.4 kg
[2017-07-05 11:16] LABS: BASOPHIL (%) 0.7 % (0-1); BASOPHIL COUNT 0.1 K/uL (0-0.1); EOSINOPHIL (%) 0.7 % (0-5); EOSINOPHIL COUNT 0.1 K/uL (0-0.3); HEMATOCRIT 42.2 % (36.0-46.0); HEMOGLOBIN 14.3 G/DL (11.9-15.5); IMMATURE GRANULOCYTE (%) 0.5 % (0.0-0.7); LYMPHOCYTE (%) 25.9 % (15-42); LYMPHOCYTE COUNT 2.5 K/uL (1.0-2.8); MCH 30.6 PG (29.0-34.0); MCHC 33.9 G/DL (30.0-36.0); MCV 90.4 FL (83-99); MONOCYTE (%) 7.9 % (3-12); MONOCYTE COUNT 0.8 K/uL (0-0.8); NEUTROPHIL (%) 64.3 % (45-76); NEUTROPHIL COUNT 6.2 K/uL (1.8-6.4); PLATELET COUNT 266 K/uL (156-360); RBC DIS.WIDTH-CV 12.4 % (11.8-14.6); RBC DIS.WIDTH-SD 41.1 % (39-53); RED BLOOD COUNT 4.67 M/uL (3.80-5.20); WHITE BLOOD COUNT 9.7 K/uL (4.1-10.2)
[2017-07-05 11:26] LABS: INTER. NORMALIZED RATIO 1.3
[2017-07-05 11:27] LABS: AMYLASE 73 IU/L (1-118); CHLORIDE 102 mEq/L (99-109); POTASSIUM 4.3 mEq/L (3.7-5.4); SODIUM 140 mEq/L (136-147)
[2017-07-05 11:28] LABS: PTT 31.3 SEC (25-37)
[2017-07-05 11:29] LABS: GLUCOSE 131 mg/dL (70-99)
[2017-07-05 11:32] LABS: SERUM ETHYL ALCOHOL < 10 mg/dL
[2017-07-05 11:33] LABS: CREATININE 0.9 mg/dL (0.6-1.3); GFR ESTIMATE (CALCULATED) > 59 mL/min/
[2017-07-05 11:34] LABS: UREA NITROGEN (BUN) 14 mg/dL (9-23)
[2017-07-05 11:36] LABS: LIPASE 44 U/L (1.0-51.0)
[2017-07-05 11:44] LABS: TROP-I INTERPRETATION NEGATIVE; TROPONIN-I < 0.01 ng/mL (0.0-0.30)
[2017-07-05] MEDS ORDERED: ELIQUIS5 MG PO (13:36)
[2017-07-05] MEDS ORDERED: TYLENOL WITH C1 EACH PO (13:38)
[2017-07-05] MEDS ORDERED: [UNRECOGNIZED DRUG - OTHER] TP (14:41)
[2017-07-05 16:03] LABS: HDL CHOLESTEROL 38 MG/DL (Desirable>=50); LDL CHOLESTEROL 113 mg/dL (Desirable<100); NON-HDL CHOLESTEROL 160 mg/dL (Desirable<160); TOTAL CHOLESTEROL 198 mg/dL (Desirable<200); TRIGLYCERIDES 236 MG/DL (Normal: <150)
[2017-07-05 16:36] LABS: APPEARANCE CLEAR ((CLEAR)); BILIRUBIN NEGATIVE; BLOOD NEGATIVE; COLOR YELLOW ((YELLOW)); GLUCOSE (STRIP) NEGATIVE; KETONES 5; LEUKOCYTES NEGATIVE; NITRITE NEGATIVE; PROTEIN (STRIP) NEGATIVE; SPECIFIC GRAVITY 1.015 (1.000-1.030); UCUL ADDED? NO; UROBILINOGEN 0.2 MG/DL (0.2-1.0)
[2017-07-05 17:01] VITALS: BP 204/88
[2017-07-05 17:37] LABS: TROP-I INTERPRETATION NEGATIVE; TROPONIN-I 0.02 ng/mL (0.0-0.30)
[2017-07-05 19:28] LABS: BASE EXCESS 3.5 mEq/L (-3 to +3); BICARBONATE 26.5 mEq/L (22-26); COMMENTS - BLOOD GASES C+A+; DEVICE NC; METHEMOGLOBIN 1.4 % (0-1.5); O2 FLOW 3.5 L/MIN; PCO2 34 mm Hg (35-45); PO2 78 mm Hg (80-100); SITE LR
[2017-07-05 20:00] VITALS: BP 161/76
[2017-07-05 21:11] LABS: AMPHETAMINE NEGATIVE (500 ng/mL); BARBITURATES NEGATIVE (200 ng/mL); BENZODIAZEPINES PRESUMPTIVE POSITIVE (150 ng/mL); BUPRENORPHINE NEGATIVE (10 ng/mL); COCAINE NEGATIVE (150 ng/mL); METHADONE NEGATIVE (200 ng/mL); METHAMPHETAMINE NEGATIVE (500 ng/mL); OPIATES (MORPHINE) PRESUMPTIVE POSITIVE (100 ng/mL); OXYCODONE NEGATIVE (100 ng/mL); PHENCYCLIDINE NEGATIVE (25 ng/mL); PROPOXYPHENE NEGATIVE (300 ng/mL); THC CANNABINOIDS NEGATIVE (50 ng/mL); TRICYCLIC ANTIDEPRESSANTS NEGATIVE (300 ng/mL)
[2017-07-05 21:49] LABS: BENZODIAZEPINES, URINE SCREEN Negative (200 ng/mL)
[2017-07-05 23:35] VITALS: BP 143/68
[2017-07-06] LABS: TROP-I INTERPRETATION NEGATIVE; TROPONIN-I 0.01 ng/mL (0.0-0.30)
[2017-07-06 04:00] VITALS: BP 142/64
[2017-07-06 05:37] LABS: HEMATOCRIT 34.8 % (36.0-46.0); MCH 30.4 PG (29.0-34.0); MCHC 33.6 G/DL (30.0-36.0); MCV 90.4 FL (83-99); RBC DIS.WIDTH-CV 12.5 % (11.8-14.6); RBC DIS.WIDTH-SD 41.7 % (39-53); RED BLOOD COUNT 3.85 M/uL (3.80-5.20); WHITE BLOOD COUNT 9.8 K/uL (4.1-10.2)
[2017-07-06 05:38] LABS: HEMOGLOBIN 11.7 G/DL (11.9-15.5)
[2017-07-06 05:58] LABS: CHLORIDE 102 MEQ/L (99-109); CREATININE 0.9 MG/DL (0.6-1.3); GFR ESTIMATE (CALCULATED) > 59 mL/min/; GLUCOSE 102 mg/dL (70-99); SODIUM 135 MEQ/L (136-147); UREA NITROGEN (BUN) 16 mg/dL (9-23)
[2017-07-06 06:01] LABS: POTASSIUM 3.4 MEQ/L (3.7-5.4)
[2017-07-06 06:04] LABS: PLATELET COUNT 228 K/uL (156-360)
[2017-07-06 07:08] VITALS: BP 140/65
[2017-07-06 10:06] LABS: HEMOGLOBIN A1c (GLYCOHEMOGLOB) 6.6 % (Below 5.7)
[2017-07-06 11:01] VITALS: BP 90/50
[2017-07-06 14:57] VITALS: BP 129/86
[2017-07-06 19:45] VITALS: BP 139/62
[2017-07-06 23:17] VITALS: BP 149/58
[2017-07-07 03:43] VITALS: BP 112/53
[2017-07-07 05:23] LABS: BASOPHIL (%) 0.6 % (0-1); BASOPHIL COUNT 0.1 K/uL (0-0.1); EOSINOPHIL (%) 2.6 % (0-5); EOSINOPHIL COUNT 0.3 K/uL (0-0.3); HEMATOCRIT 38.7 % (36.0-46.0); HEMOGLOBIN 12.8 G/DL (11.9-15.5); IMMATURE GRANULOCYTE (%) 0.4 % (0.0-0.7); LYMPHOCYTE (%) 15.3 % (15-42); LYMPHOCYTE COUNT 1.9 K/uL (1.0-2.8); MCH 29.8 PG (29.0-34.0); MCHC 33.1 G/DL (30.0-36.0); MONOCYTE (%) 4.4 % (3-12); MONOCYTE COUNT 0.5 K/uL (0-0.8); NEUTROPHIL (%) 76.7 % (45-76); NEUTROPHIL COUNT 9.3 K/uL (1.8-6.4); PLATELET COUNT 235 K/uL (156-360); RBC DIS.WIDTH-CV 12.5 % (11.8-14.6); WHITE BLOOD COUNT 12.1 K/uL (4.1-10.2)
[2017-07-07 06:09] LABS: CHLORIDE 104 MEQ/L (99-109); CREATININE 0.8 MG/DL (0.6-1.3); GFR ESTIMATE (CALCULATED) > 59 mL/min/; GLUCOSE 131 mg/dL (70-99); SODIUM 136 MEQ/L (136-147); UREA NITROGEN (BUN) 14 mg/dL (9-23)
[2017-07-07 06:18] LABS: POTASSIUM 4.5 MEQ/L (3.7-5.4)
[2017-07-07 07:13] VITALS: BP 133/61
[2017-07-07 11:44] VITALS: BP 97/52
[2017-07-07 14:50] VITALS: BP 119/54
[2017-07-07 19:45] VITALS: BP 125/62
[2017-07-08] VITALS: BP 114/62
[2017-07-08 04:00] VITALS: BP 120/64
[2017-07-08 08:11] VITALS: BP 139/79
[2017-07-08 11:17] VITALS: BP 136/65
[2017-07-08] MEDS ORDERED: ATORVASTATIN CA40 MG PO (14:46)
[2017-07-08] MEDS ORDERED: METOCLOPRAMIDE10 MG PO (14:48)
[2017-07-08] MEDS ORDERED: ULTRAM50 MG PO (14:51)
[2017-07-08] MEDS ORDERED: TYLENOL WITH C1 EACH PO (14:51)
== END 2017-07-08 16:37 | DRG 947 ==
LOC: EME 10:51 → ENRESERV 13:23 → 4SOUTH 13:26 → ENRESERV 13:39 → EDOF 13:40 → ENRESERV 13:52 → 4SOUTH 14:06 → EDOF 14:06 → 4SOUTH 16:45
PROVIDERS: Emergency Medicine; Hospitalist
DX: R41.82 Altered mental status, unspecified (principal); J96.01 Acute respiratory failure with hypoxia; R47.01 Aphasia; R50.9 Fever, unspecified; R53.1 Weakness; I10 Essential (primary) hypertension; E78.5 Hyperlipidemia, unspecified; E11.9 Type 2 diabetes mellitus without complications; G47.30 Sleep apnea, unspecified; M79.7 Fibromyalgia; F32.9 Major depressive disorder, single episode, unspecified; M19.90 Unspecified osteoarthritis, unspecified site; Z96.643 Presence of artificial hip joint, bilateral; Z79.84 Long term (current) use of oral hypoglycemic drugs; Z79.02 Long term (current) use of antithrombotics/antiplatelets; Z86.711 Personal history of pulmonary embolism; Z85.828 Personal history of other malignant neoplasm of skin
CPT/HCPCS: 36600; 70450; 70544; 70551; 71046; 71275; 80048; 80061; 81003; 82150; 82803; 82948; 83036; 83690; 84484; 84999; 85025; 85027; 85610; 85730; 86850; 86900; 86901; 87040; 93005; 93306; 93880; 94799; 99281; 99285; G0480; J0456; J0696; J1885; J2405; J7040